=== PATIENT | male | born 1995 | race Caucasian/White ===

== ENCOUNTER 2020-05-07 22:41 | Emergency (ER) | payer MEDICAID ==
[~2020-05-07] VITALS: Ht 167.6 cm; Wt 59.0 kg
[2020-05-07 22:55] VITALS: BP 117/66
--- NOTE | 2020-05-07 23:07 | NUR ---
PT IN LOBBY.
--- NOTE | 2020-05-08 01:16 | NUR ---
PT TAKEN TO BED 01 VIA WHEELCHAIR.
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
[2020-05-08] MEDS ORDERED: KETOROLAC 60 MG/2 ML VIAL IM ONE (01:45)
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
[2020-05-08 02:16] VITALS: BP 117/66
== END 2020-05-08 02:10 | disposition home or self-care (01) ==
LOC: MED 22:41
DX: M25.561 Pain in right knee (principal); M19.90 Unspecified osteoarthritis, unspecified site; Z96.651 Presence of right artificial knee joint
CPT/HCPCS: 73562; 96372; 99283; J1885